=== PATIENT | female | born 1935 | race Caucasian/White ===

== ENCOUNTER 2019-02-07 07:50 | Emergency (ER) | payer MEDICARE ==
[~2019-02-07] VITALS: Ht 147.3 cm; Wt 45.6 kg
[~2019-02-07 07:50] MED LIST: ASPI-1265 PO; ATOR20TA PO; CHOL400T14 PO; MULT-1179 PO; NAPR220C15 PO
[2019-02-07] MEDS ORDERED: aspirin 81mg tab.chew PO ONE (08:30)
[2019-02-07] MEDS ORDERED: pantoprazole 40 MG vial IV ONE (08:30)
[2019-02-07] MEDS ORDERED: normal saline 1000ML IV soln IVB ONE (08:30)
[2019-02-07 09:06] LABS: BASOPHILS % (AUTO) 0.8 % (0-1); EOSINOPHILS # (AUTO) 0.2 X10'3 (0-0.9); EOSINOPHILS % (AUTO) 4.8 % (0-6); HEMATOCRIT 41.7 % (35.0-45.0); HEMOGLOBIN 13.8 g/dl (12.0-16.0); LYMPHOCYTES # (AUTO) 1.1 X10'3 (1.1-4.8); LYMPHOCYTES % (AUTO) 27.2 % (21-51); MEAN CORPUSCULAR HEMOGLOBIN 30.2 PG (27.0-31.0); MEAN CORPUSCULAR HGB CONC 33.2 g/dL (33.0-36.5); MEAN CORPUSCULAR VOLUME 91.2 FL (78-98); MEAN PLATELET VOLUME 7.9 FL (7.4-10.4); MONOCYTES # (AUTO) 0.4 X10'3 (0-0.9); MONOCYTES % (AUTO) 9.3 % (2-12); NEUTROPHILS # (AUTO) 2.4 X10'3 (1.8-7.7); NEUTROPHILS % (AUTO) 57.9 % (42-75); PLATELET COUNT 204 X10'3 (140-440); RED BLOOD COUNT 4.58 X10'6 (4.20-5.60); RED CELL DISTRIBUTION WIDTH 14.3 % (11.5-14.5); WHITE BLOOD COUNT 4.1 X10'3 (4.5-11.0)
[2019-02-07 09:21] LABS: ALANINE AMINOTRANSFERASE 18 U/L (12-78); ALBUMIN 3.5 G/DL (3.4-5.0); ALBUMIN/GLOBULIN RATIO 1.2 (1.1-1.5); ALKALINE PHOSPHATASE 103 IU/L (46-116); ANION GAP 9 (8-16); ASPARTATE AMINO TRANSFERASE 15 U/L (10-37); BILIRUBIN,TOTAL 0.5 MG/DL (0.1-1.0); BLOOD UREA NITROGEN 17 MG/DL (7-18); BUN/CREATININE RATIO 20.7 (6.6-38.0); CHLORIDE 108 MMOL/L (99-107); CREATININE 0.82 MG/DL (0.40-0.90); GLUCOSE 121 MG/DL (70-104); POTASSIUM 3.8 MMOL/L (3.5-5.1); SODIUM 145 MMOL/L (135-145); TOTAL CARBON DIOXIDE 28.5 MMOL/L (24-32); TOTAL PROTEIN 6.5 G/DL (6.4-8.2); eGFR 67 ML/MIN
--- NOTE | 2019-02-07 09:39 | NUR ---
breaking primary RN, pt sitting up in bed talking with , no s/s of distress
[2019-02-07 10:47] VITALS: BP 134/79
== END 2019-02-07 10:49 | disposition home or self-care (01) ==
LOC: ER 07:51
DX: R07.89 Other chest pain (principal); I25.10 Atherosclerotic heart disease of native coronary artery without angina pectoris; G89.29 Other chronic pain; Z90.710 Acquired absence of both cervix and uterus; Z98.890 Other specified postprocedural states; Z88.0 Allergy status to penicillin; Z79.82 Long term (current) use of aspirin; Z79.899 Other long term (current) drug therapy
CPT/HCPCS: 36415; 80053; 84484; 85025; 93005; 96374; 99284; C9113; J7050

== ENCOUNTER 2020-04-13 09:41 | Emergency (ER) | payer MEDICARE, OTHER ==
[2020-04-13] VITALS (7 sets, daily range): BP systolic 127–156; BP diastolic 65–101
[~2020-04-13] VITALS: Ht 147.3 cm; Wt 40.0 kg
[2020-04-13] MEDS ORDERED: iohexol 350MG/ML 100ml bottle IV ONE (10:00)
[2020-04-13 10:53] LABS: BASOPHILS # (AUTO) 0.1 X10'3 (0-0.2); BASOPHILS % (AUTO) 1.1 % (0-1); EOSINOPHILS # (AUTO) 0.2 X10'3 (0-0.9); EOSINOPHILS % (AUTO) 2.7 % (0-6); HEMATOCRIT 47.9 % (35.0-45.0); LYMPHOCYTES # (AUTO) 1.7 X10'3 (1.1-4.8); MEAN CORPUSCULAR HEMOGLOBIN 30.9 PG (27.0-31.0); MEAN CORPUSCULAR HGB CONC 33.4 g/dL (33.0-36.5); MEAN CORPUSCULAR VOLUME 92.4 FL (78-98); MEAN PLATELET VOLUME 8.5 FL (7.4-10.4); MONOCYTES # (AUTO) 0.5 X10'3 (0-0.9); MONOCYTES % (AUTO) 6.6 % (2-12); NEUTROPHILS # (AUTO) 4.6 X10'3 (1.8-7.7); NEUTROPHILS % (AUTO) 65.6 % (42-75); PLATELET COUNT 225 X10'3 (140-440); RED BLOOD COUNT 5.19 X10'6 (4.20-5.60); RED CELL DISTRIBUTION WIDTH 14.4 % (11.5-14.5)
[2020-04-13 11:07] LABS: PARTIAL THROMBOPLASTIN TIME 26 SECONDS (22-32)
[2020-04-13 11:11] LABS: ALANINE AMINOTRANSFERASE 32 U/L (12-78); ALBUMIN/GLOBULIN RATIO 1.2 (1.1-1.5); ALKALINE PHOSPHATASE 153 IU/L (46-116); ANION GAP 6 (8-16); ASPARTATE AMINO TRANSFERASE 44 U/L (10-37); BILIRUBIN,TOTAL 0.5 MG/DL (0.1-1.0); BLOOD UREA NITROGEN 16 MG/DL (7-18); BUN/CREATININE RATIO 19.5 (6.6-38.0); CALCIUM 9.9 MG/DL (8.5-10.1); CHLORIDE 105 MMOL/L (99-107); CREATININE 0.82 MG/DL (0.40-0.90); GLUCOSE 122 MG/DL (70-104); POTASSIUM 4.1 MMOL/L (3.5-5.1); SODIUM 142 MMOL/L (135-145); TOTAL CARBON DIOXIDE 31.3 MMOL/L (24-32); TOTAL PROTEIN 7.4 G/DL (6.4-8.2); eGFR 67 ML/MIN
[2020-04-13 11:19] LABS: MAGNESIUM 1.9 MG/DL (1.5-2.4)
--- NOTE | 2020-04-13 11:34 | NUR ---
PATIENT STATES SHE IS HERE TODAY FOR C/O DIARRHEA. TO CT SCAN PER WC.
[2020-04-13] MEDS ORDERED: ondansetron/PF 4mg/2ml inj IV ONE (11:50)
--- NOTE | 2020-04-13 12:40 | NUR ---
pT'S BELONGINGS TO BE SENT TO GI LAB W/PT ROOM IN ED NEEDED. PRIMARY RN TO COMMUNICATE TO GI RN/TECH COMING TO PICK PT UP.
--- NOTE | 2020-04-13 12:59 | NUR ---
TC TO , FREDERICK, AT [phone]. UPDATE GIVEN TO FREDERICK AND HE VERBALIZED UNDERSTANDING THAT SHE IS STILL RECEIVING WORK-UP.
[2020-04-13] MEDS ORDERED: LIDOcaine Viscous 15ml cup ONE (13:04)
[2020-04-13] MEDS ORDERED: MIDAZolam 5mg/5ml vial ONE (13:04)
[2020-04-13] MEDS ORDERED: fentaNYL/PF 50MCG/1 ML 2ML syringe ONE (13:04)
[2020-04-13 13:37] LABS: LIPASE 50 U/L (73-393)
--- NOTE | 2020-04-13 14:08 | NUR ---
PT BACK FROM GI LAB RECOVERING WELL.
[2020-04-13] MEDS ORDERED: sucralfate 1 gm tablet PO ONE (14:20)
[2020-04-13] MEDS ORDERED: LIDOcaine Viscous 15ml cup MM ONE (14:20)
[2020-04-13] MEDS ORDERED: mag hydrox/Alum hydrox/simeth 30ml oral suspension PO ONE (14:20)
[2020-04-13] MEDS ORDERED: SUCR1TAB34 PO (14:36)
--- NOTE | 2020-04-13 16:30 | NUR ---
PATIENT'S SON, FREDERICK CALLED FOR CONDITION REPORT.
--- NOTE | 2020-04-13 16:31 | NUR ---
TC TO , FREDERICK FOR TRANSPORTATION HOME.
[2020-04-13] MEDS ORDERED: OMEP40CA13 PO (16:35)
== END 2020-04-13 16:47 | disposition home or self-care (01) ==
LOC: ER 09:41
DX: K20.90 Esophagitis, unspecified without bleeding (principal); K29.70 Gastritis, unspecified, without bleeding; I25.10 Atherosclerotic heart disease of native coronary artery without angina pectoris; G89.29 Other chronic pain; Z90.49 Acquired absence of other specified parts of digestive tract; Z90.710 Acquired absence of both cervix and uterus; Z88.0 Allergy status to penicillin; Z88.7 Allergy status to serum and vaccine; Z79.84 Long term (current) use of oral hypoglycemic drugs; Z79.899 Other long term (current) drug therapy
CPT/HCPCS: 36415; 43239; 71045; 71275; 74175; 80053; 83690; 83735; 83880; 84484; 85025; 85610; 85730; 93005; 99285; J2250; J3010; J7040; Q9967; 99152; A4620